=== PATIENT | male | born 1975 | race Caucasian/White ===

== ENCOUNTER 2016-12-18 08:12 | Emergency (ER) | payer SELFPAY ==
[2016-12-18 08:27] VITALS: BP 122/81
--- NOTE | 2016-12-18 11:21 | RAD ---
Indication: Right wrist pain 3 views of the wrist demonstrates no fracture. No other bone or joint abnormality is identified. IMPRESSION: NO FRACTURE OF THE WRIST IS NOTED.
--- NOTE | 2016-12-18 12:13 | UC ---
Ada Gentile Salem, scribed for Danyel Ross MD on 12/18/16 at 0936 . Upper Extremity HPI - HPI Summary HPI Summary: Patient is a 41 y/o M who presents to the with right wrist pain for the past two days. He states that while he was at work 2 days ago he jammed his wrist into his pick-up truck. He denies a popping sound, but reports pain with side to side movement. He also denies elbow or hand pain. Pt is right handed. Patients medication reviewed this visit. - History of Current Complaint Chief Complaint: UCUpperExtremity Stated Complaint: WRIST INJURY Hx Obtained From: Patient Onset/Duration: Gradual Onset, Lasting Days, Still Present Severity Initially: Moderate Severity Currently: Moderate Pain Intensity: 5 Pain Scale Used: 0-10 Numeric Location Of Pain: Is Discrete @ - Right wrist. Aggravating Factor(s): Movement Alleviating Factor(s): Rest Associated Signs And Symptoms: Positive: Negative - Allergies/Home Medications Allergies/Adverse Reactions: Allergies Allergy/AdvReac Type Severity Reaction Status Date / Time Penicillins Allergy Unknown Verified 12/18/16 08:20 Reaction Details Home Medications: Home Medications Etanercept [Enbrel] 12/18/16 [History] Hydrochlorothiazide TAB* [Hydrodiuril TAB*] 1 tab PO DAILY 12/18/16 [History Confirmed 12/18/16] PMH/Surg Hx/FS Hx/Imm Hx Previously Healthy: Yes - Surgical History Surgical History: Yes Surgery Procedure, Year, and Place: hernia as child x 2; r shoulder arthroscopy. vasectomy 2007. PARTIAL LARGE INTESTINE REMOVAL - Family History Family History: No malignant hyperthermia and no anesthesia reaction - Social History Alcohol Use: Rare Alcohol Amount: 1-2 month Substance Use Type: None Smoking Status (MU): Former Smoker Type: Cigarettes Amount Used/How Often: 1ppd Length of Time of Smoking/Using Tobacco: 10 yrs Have You Smoked in the Last Year: No When Did the Patient Quit Smoking/Using Tobacco: 11 yrs - Immunization History Most Recent Influenza Vaccination: 2016 Most Recent Tetanus Shot: 1999 Most Recent Pneumonia Vaccination: never Review of Systems Constitutional: Negative Musculoskeletal: Other: - Right wrist pain. No elbow or hand pain. All Other Systems Reviewed And Are Negative: Yes Physical Exam Triage Information Reviewed: Yes Vital Signs: Initial Vital Signs Temp 98.1 F 12/18/16 08:22 Pulse 65 12/18/16 08:22 Resp 16 12/18/16 08:22 BP 122/81 12/18/16 08:22 Pulse Ox 100 12/18/16 08:22 Vital Signs Reviewed: Yes - Additional Comments The patient is well-nourished in no acute distress and in no acute pain. The skin is warm and dry and skin color reflects adequate perfusion. HEENT: The head is normocephalic and atraumatic. The pupils are equal and reactive. The conjunctivae are clear and without drainage. Neck is supple with full range of motion and non-tender. Respiratory: Chest is non-tender. Lungs are clear to auscultation and breath sounds are symmetrical and equal. Cardiovascular: Hear is regular rate and rhythm. There is no murmur or rub auscultated. There is no peripheral edema and pulses are symmetrical and equal. Abdomen: The abdomen is soft and non-tender. Musculoskeletal: There is no back pain noted. Extremities are non-tender with full range of motion. There is good capillary refill. Pain with ulnar and radial deviation. No pain with extension or flexion. Radial median and ulnar nerves intact. Neurological: Patient is alert and oriented to person, place and time. The patient has symmetrical motor strength in all four extremities. Psychiatric: The patient has an appropriate affect and does not exhibit any anxiety or depression. Procedures - Splinting Location: Wrist and forearm, right. Pre-Made Type: velcro Splint: wrist - Right. Pre-Proc Neuro Vasc Exam: normal Post-Proc Neuro Vasc Exam: normal Diagnostics - Radiology WRIST RIGHT XR Radiology Interpretation Completed By: ED Physician - On preliminary reading, soft tissue swelling, but no fracture., Radiologist - IMPRESSION: negative. Re-Evaluation - Re-Evaluation First Eval Re-Evaluation Time: 10:12 Comment: Discussed imaging results. Splint wrist. Full ROM and good capillary refill after splint placement. Upper Extremity Course/Dx - Course Course Of Treatment: 41 y/o M presents with right wrist injury since 2 days ago. He denies a popping sound, but reports pain with side to side movement. He also denies elbow or hand pain. XR taken. Pt will be DCd with instructions. - Differential Dx/Diagnosis Differential Diagnosis/HQI/PQRI: Fracture (Closed), Sprain Provider Diagnoses: Sprained wrist. Discharge - Discharge Plan Condition: Stable Disposition: HOME Patient Education Materials: Wrist Sprain (ED) Referrals: Sakina Salazar MD [Primary Care Provider] - Additional Instructions: Please use ice and elevate wrist. Take Ibuprofen for pain. Please follow up with your primary care provider. The documentation as recorded by the Ada owen Salem accurately reflects the service I personally performed and the decisions made by , Danyel Ross MD.
== END 2016-12-18 10:28 | disposition home or self-care (01) ==
LOC: UCEAST 08:12
DX: S63.501A Unspecified sprain of right wrist, initial encounter (principal); W23.0XXA Caught, crushed, jammed, or pinched between moving objects, initial encounter; Y93.9 Activity, unspecified; Y92.89 Other specified places as the place of occurrence of the external cause; Y99.0 Civilian activity done for income or pay; Z88.0 Allergy status to penicillin; Z87.891 Personal history of nicotine dependence
CPT/HCPCS: 99211; G0463

== ENCOUNTER 2017-02-12 14:37 | Emergency (ER) | payer OTHER ==
[2017-02-12 15:34] LABS: Hematocrit 49 % (42-52); Hemoglobin 16.5 g/dl (14.0-18.0); Mean Corpuscular HGB Conc 34 g/dl (31-36); Mean Corpuscular Hemoglobin 31 pg (27-31); Mean Corpuscular Volume 92 fL (80-94); Mean Platelet Volume 8 um3 (7.4-10.4); Red Blood Count 5.37 10^6/ul (4.0-5.4); Red Cell Distribution Width 13 % (10.5-15); White Blood Count 9.5 10^3/ul (3.5-10.8)
[2017-02-12 15:48] LABS: Albumin 4.5 g/dL (3.2-5.2); BUN/Creatinine Ratio 10.7 (8-20); Calcium 9.5 mg/dL (8.6-10.3); EGFR Non-African American 66.1 (>60); Globulin 3.4 g/dL (2-4); Potassium 3.9 mmol/L (3.5-5.0); Total Bilirubin 1.1 mg/dL (0.2-1.0); Total Protein 7.9 g/dL (6.4-8.9)
[2017-02-12] MEDS ORDERED: NS 0.9% 1000 ML* 1,000 ML IV ONE (16:27)
[2017-02-12 16:48] LABS: C Reactive Protein 121.42 mg/L (< 5.00)
[2017-02-12] MEDS ORDERED: Iohexol 300* (CONTRAST) 10 ML SDV IV ONE (16:50)
--- NOTE | 2017-02-12 19:33 | RAD ---
CLINICAL HISTORY: Left lower quadrant pain. Relevant surgical history includes partial colectomy and vasectomy. COMPARISON: Most recent CT of the abdomen and pelvis dated March 28, 2014 TECHNIQUE: Contrast enhanced CT examination of the abdomen and pelvis from the lung bases through the initial tuberosities. The patient received 133 mL Omnipaque 300 intravenously prior to imaging.The patient received oral contrast as well prior to imaging. FINDINGS: VISUALIZED LUNG BASES: The visualized lung bases are grossly clear. There is no pleural effusion. ABDOMEN AND PELVIS: The liver, pancreas and adrenal glands are grossly normal in appearance. At the superior aspect of the spleen there is an ill-defined 6 mm low-density focus that may simply represent variation in enhancement. This portion of the spleen is cut off on the delayed views images to determine if it eventually fills in. The spleen is top normal in size measuring 12.8 cm in greatest dimension. There are at least 2 hyperattenuating stones in the gallbladder lumen. The gallbladder is otherwise normal in appearance according to CT criteria. The kidneys are normal in appearance without focal mass, calcification or signs of hydronephrosis. There are contrast has progressed as far as the rectum. The small and large bowel are not distended. The patient's normal appendix is identified in the right lower quadrant (coronal image 51). At the superior portion of the descending colon there is a segment of colon exhibiting wall thickening up to 1 cm in thickness with moderate pericolonic infiltration of the fat. There are diverticula in this region. More distally there are diverticula that do not exhibit inflammatory change. Surgical material seen at the junction of the descending colon and sigmoid colon.. There is no gross retroperitoneal or mesenteric lymphadenopathy. Surgical clips are noted at the inguinal canals. The abdominal aorta and iliac arteries are normal in course and diameter. Degenerative changes include multilevel loss of intervertebral disc height involving the lower thoracic and lumbar spine as well as stable bilateral pars interarticularis defect at L5/S1..There are no sinister bone lesions. IMPRESSION: 1. There is focal inflammatory change and wall thickening at the superior portion of the descending colon consistent with diverticulitis or colitis of another etiology. 2. Mild splenomegaly measuring up to 12.8 cm in greatest axial dimension. There is also a vaguely defined 6 mm focus of hypoattenuation of the spleen. This may simply represent variation in enhancement. Further characterization can be made on a nonemergent basis with splenic ultrasound. 3. Additional chronic, degenerative and iatrogenic findings described in the body the report.
[2017-02-12] MEDS ORDERED: Amoxicillin/Clavulanate TAB* 875 MG PO ONE ×2 (20:13→20:14)
--- NOTE | 2017-02-12 20:18 | ED ---
Benton Gentile Angela, scribed for Dragan Nuñez MD on 02/12/17 at 1630 . Abdominal Pain/Male - HPI Summary HPI Summary: 42 y/o male PMHx of diverticulitis presents to the ED sent by his PCP (Dr. Salazar) c/o left lower abdominal pain that began 2 days ago. Pt described his pain as nonradiating and rates it 3 out of 10 in severity now, but states that its worse it is a 7 out of 10. He notes that sitting down aggravates his pain. Pt has normal PO intake but has been avoiding to eat normally due to history of abd pain. Pt states that this pain is similar to a prior diverticulitis. Pt denies fever, chills, bloody stools, dysuria, hematuria, testicular pain, rash. He states that he had a large section of his colon removed years ago and has not had any problems since then. - History of Current Complaint Chief Complaint: EDAbdPain Stated Complaint: LOWER ABD PAIN Time Seen by Provider: 02/12/17 16:15 Hx Obtained From: Patient Onset/Duration: Gradual Onset Timing: Constant Pain Intensity: 4 - At its worst it is a 7 Pain Scale Used: 0-10 Numeric Location: Discrete At: LLQ Radiates: No Aggravating Factor(s): Other: - Sitting up. Alleviating Factor(s): Nothing Associated Signs And Symptoms: Negative: Fever, Blood in Stool, Nausea - Allergies/Home Medications Allergies/Adverse Reactions: Allergies Allergy/AdvReac Type Severity Reaction Status Date / Time Penicillins Allergy Unknown Verified 12/18/16 08:20 Reaction Details PMH/Surg Hx/FS Hx/Imm Hx Endocrine/Hematology History: Denies: Hx Diabetes, Hx Systemic Lupus Erythematosus Cardiovascular History: Reports: Hx Hypertension Denies: Hx Congestive Heart Failure GI History: Reports: Hx Diverticulosis, Other GI Disorders - DIVERTICULOSIS/SBO History: Denies: Hx Dialysis, Hx Renal Disease Musculoskeletal History: Reports: Hx Arthritis, Other Musculoskeletal History - psoriatic arthritis Denies: Hx Rheumatoid Arthritis Sensory History: Denies: Hx Contacts or Glasses, Hx Hearing Aid Opthamlomology History: Denies: Hx Contacts or Glasses - Cancer History Hx Chemotherapy: - for arthritis,low dose - Surgical History Surgery Procedure, Year, and Place: hernia as child x 2; r shoulder arthroscopy. vasectomy 2008. PARTIAL LARGE INTESTINE REMOVAL Hx Anesthesia Reactions: No Infectious Disease History: No Infectious Disease History: Denies: History Other Infectious Disease, Traveled Outside the [place] in Last 30 Days - Family History Known Family History: Positive: None Family History: No malignant hyperthermia and no anesthesia reaction - Social History Alcohol Use: Rare Alcohol Amount: 1-2 month Substance Use Type: Reports: None Hx Tobacco Use: Yes Smoking Status (MU): Former Smoker Type: Cigarettes Amount Used/How Often: 1ppd Length of Time of Smoking/Using Tobacco: 10 yrs Have You Smoked in the Last Year: No Review of Systems Negative: Fever, Chills Positive: Abdominal Pain Positive: other - NEGATIVE: Bloody stools. Negative: dysuria, hematuria Negative: Rash All Other Systems Reviewed And Are Negative: Yes Physical Exam - Summary Physical Exam Summary: General: well-appearing, no pain distress. No acute distress. Skin: warm, color reflects adequate perfusion, dry Head: normal Eyes: EOMI, MILADY ENT: normal Neck: supple, nontender Respiratory: CTA, breath sounds present Cardiovascular: RRR Abdomen: soft, mild tenderness on LLQ. Bowel: positive bowel sounds. Musculoskeletal: normal, strength/ROM intact Neurological: normal, sensory/motor intact, A&O x3 Psychological: affect/mood appropriate Triage Information Reviewed: Yes Vital Signs On Initial Exam: Initial Vitals Temp Pulse Resp BP Pulse Ox 97.8 F 94 17 135/88 100 02/12/17 14:50 02/12/17 14:50 02/12/17 14:50 02/12/17 14:50 02/12/17 14:50 Vital Signs Reviewed: Yes - [place] Coma Scale Coma Scale Total: 15 Diagnostics - Vital Signs Vital Signs Temp Pulse Resp BP Pulse Ox 02/12/17 16:06 98.8 F 85 18 133/88 97 02/12/17 14:50 97.8 F 94 17 135/88 100 - Laboratory Lab Results: Lab Results 02/12/17 02/12/17 Range/Units 15:21 15:21 WBC 9.5 (3.5-10.8) 10^3/ul RBC 5.37 (4.0-5.4) 10^6/ul Hgb 16.5 (14.0-18.0) g/dl Hct 49 (42-52) % MCV 92 (80-94) fL MCH 31 (27-31) pg MCHC 34 (31-36) g/dl RDW 13 (10.5-15) % Plt Count 197 (150-450) 10^3/ul MPV 8 (7.4-10.4) um3 Neut % (Auto) 66.2 (38-83) % Lymph % (Auto) 19.5 L (25-47) % [place] % (Auto) 11.8 H (1-9) % Eos % (Auto) 1.9 (0-6) % Baso % (Auto) 0.6 (0-2) % Absolute Neuts (auto) 6.3 (1.5-7.7) 10^3/ul Absolute Lymphs (auto) 1.9 (1.0-4.8) 10^3/ul Absolute Monos (auto) 1.1 H (0-0.8) 10^3/ul Absolute Eos (auto) 0.2 (0-0.6) 10^3/ul Absolute Basos (auto) 0.1 (0-0.2) 10^3/ul Absolute Nucleated RBC 0.01 10^3/ul Nucleated RBC % 0.1 Sodium 136 (133-145) mmol/L Potassium 3.9 (3.5-5.0) mmol/L Chloride 99 L (101-111) mmol/L Carbon Dioxide 30 (22-32) mmol/L Anion Gap 7 (2-11) mmol/L BUN 13 (6-24) mg/dL Creatinine 1.21 H (0.67-1.17) mg/dL Est GFR ( Amer) 85.0 (>60) Est GFR (Non-Af Amer) 66.1 (>60) BUN/Creatinine Ratio 10.7 (8-20) Glucose 88 (70-100) mg/dL Calcium 9.5 (8.6-10.3) mg/dL Total Bilirubin 1.10 H (0.2-1.0) mg/dL AST 12 L (13-39) U/L ALT 16 (7-52) U/L Alkaline Phosphatase 54 (34-104) U/L Total Protein 7.9 (6.4-8.9) g/dL Albumin 4.5 (3.2-5.2) g/dL Globulin 3.4 (2-4) g/dL Albumin/Globulin Ratio 1.3 (1-3) Result Diagrams: 02/12/17 15:21 02/12/17 15:21 Lab Statement: Any lab studies that have been ordered have been reviewed, and results considered in the medical decision making process. - CT CT Abd/Pelvis CT Interpretation: Positive (See Comments) - IMPRESSION: 1. There is focal inflammatory change and wall thickening at the superior portion of the descending colon consistent with diverticulitis or colitis of another etiology. 2. Mild splenomegaly measuring up to 12.8 cm in greatest axial dimension. There is also a vaguely defined 6 mm focus of hypoattenuation of the spleen. This may simply represent variation in enhancement. Further characterization can be made on a nonemergent basis with splenic ultrasound. 3. Additional chronic, degenerative and iatrogenic findings described in the body the report. CT Interpretation Completed By: Radiologist Abdominal Pain Fem Course/Dx - Course Course Of Treatment: WELL IN ED. DISCUSSED RESULTS WITH PATIENT. PATIENT REPORTS HE HAS HAD BAD SIDE EFFECTS FROM BEING ON CIPRO/FLAGYL AND THAT [employer] HAS WORKED IN THE PAST FOR HIM WITHOUT SIDE EFFECTS. HE REPORTS HE DOES NOT REMEMBER WHAT HIS PENICILLIN ALLERY WAS; HE WAS VERY YOUNG AND HE HAS TAKEN AMOXICILLIN AND AUGMENTIN WITHOUT PROBLEMS. - Diagnoses Provider Diagnoses: Diverticulitis, Abdominal pain Discharge - Discharge Plan Condition: Stable Disposition: HOME Prescriptions: Amoxicillin/Clavulanate TAB* [Augmentin TAB 875*] 875 mg PO BID #18 tab Referrals: Sakina Salazar MD [Primary Care Provider] - Additional Instructions: FOLLOW UP WITH YOUR DOCTOR. RETURN TO THE EMERGENCY DEPARTMENT FOR ANY WORSENING OF YOUR CONDITION; PAIN, FEVER, YOU FEEL ILL OR QUESTIONS OR CONCERNS. The documentation as recorded by the Benton owen Angela accurately reflects the service I personally performed and the decisions made by me, Dragan Nuñez MD.
[2017-02-12 20:51] VITALS: BP 118/73
== END 2017-02-12 20:51 | disposition home or self-care (01) ==
LOC: ED 14:37
DX: K57.92 Diverticulitis of intestine, part unspecified, without perforation or abscess without bleeding (principal); R10.32 Left lower quadrant pain; Z87.891 Personal history of nicotine dependence
CPT/HCPCS: 36415; 74177; 80053; 83690; 85025; 86140; 99283; A9270-GY; Q9967

== ENCOUNTER 2017-04-24 05:31 | Emergency (ER) | payer OTHER ==
[2017-04-24] MEDS ORDERED: NS 0.9% 1000 ML* 1,000 ML IV SCH (06:00)
[2017-04-24 06:31] LABS: Hematocrit 47 % (42-52); Hemoglobin 15.9 g/dl (14.0-18.0); Mean Corpuscular HGB Conc 34 g/dl (31-36); Mean Corpuscular Hemoglobin 30 pg (27-31); Mean Corpuscular Volume 88 fL (80-94); Mean Platelet Volume 8 um3 (7.4-10.4); Red Blood Count 5.26 10^6/ul (4.0-5.4); Red Cell Distribution Width 13 % (10.5-15); White Blood Count 8.7 10^3/ul (3.5-10.8)
[2017-04-24 06:37] LABS: Albumin 4.3 g/dL (3.2-5.2); BUN/Creatinine Ratio 17.1 (8-20); Calcium 9.6 mg/dL (8.6-10.3); EGFR African American 93.9 (>60); Globulin 3.1 g/dL (2-4); Potassium 3.7 mmol/L (3.5-5.0); Total Bilirubin 0.5 mg/dL (0.2-1.0); Total Protein 7.4 g/dL (6.4-8.9)
--- NOTE | 2017-04-24 06:56 | ED ---
Andrew Gentile Thomas, scribed for Norberto Muñoz on 04/24/17 at 0558 . Abdominal Pain/Male - HPI Summary HPI Summary: The pt is a 42 y/o M presenting to the ED c/o LLQ abd pain that began two days ago. The pain is intermittent. The pain is rated 6/10. The pain is aggravated by nothing and is alleviated by nothing. The patient has treated the pain with nothing LPN PER DIEM. He has a Hx of diverticulitis with partial colectomy. Pt denies N/V , fever, bloody stools, and leg pain. The patient is accompanied by a female. 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 [employer] - female present Onset/Duration: Lasting Days - onset of pain two days ago, Still Present Timing: Intermittent Severity Currently: Moderate Pain Intensity: 6 Pain Scale Used: 0-10 Numeric Location: Discrete At: LLQ Radiates: No Aggravating Factor(s): Nothing Alleviating Factor(s): Nothing Associated Signs And Symptoms: Negative: Fever, Blood in Stool, Nausea, Vomiting , Other - NEGATIVE: leg pain - Allergies/Home Medications Allergies/Adverse Reactions: Allergies Allergy/AdvReac Type Severity Reaction Status Date / Time Penicillins Allergy Unknown Verified 04/24/17 05:36 Reaction Details PMH/Surg Hx/FS Hx/Imm Hx Previously Healthy: No Endocrine/Hematology History: Denies: Hx Diabetes, Hx Systemic Lupus Erythematosus Cardiovascular History: Reports: Hx Hypertension Denies: Hx Congestive Heart Failure GI History: Reports: Hx Diverticulosis, Other GI Disorders - DIVERTICULOSIS/SBO History: Denies: Hx Dialysis, Hx Renal Disease Musculoskeletal History: Reports: Hx Arthritis, Other Musculoskeletal History - psoriatic arthritis Denies: Hx Rheumatoid Arthritis Sensory History: Denies: Hx Contacts or Glasses, Hx Hearing Aid Opthamlomology History: Denies: Hx Contacts or Glasses - Cancer History Hx Chemotherapy: - for arthritis,low dose - Surgical History Surgery Procedure, Year, and Place: hernia as child x 2; r shoulder arthroscopy. vasectomy 2007. PARTIAL LARGE INTESTINE REMOVAL Hx Anesthesia Reactions: No Infectious Disease History: No Infectious Disease History: Denies: History Other Infectious Disease, Traveled Outside the [place] in Last 30 Days - Family History Known Family History: Positive: Other - No malignant hyperthermia and no anesthesia reaction - Social History Alcohol Use: Rare Alcohol Amount: 1-2 month Substance Use Type: Reports: None Hx Tobacco Use: Yes Smoking Status (MU): Former Smoker Type: Cigarettes Amount Used/How Often: 1ppd Length of Time of Smoking/Using Tobacco: 10 yrs Have You Smoked in the Last Year: No Review of Systems Negative: Fever Positive: Abdominal Pain - LLQ, Other - NEGATIVE: bloody stools. Negative: Vomiting, Nausea Negative: Other - NEGATIVE: leg pain All Other Systems Reviewed And Are Negative: Yes Physical Exam - Summary Physical Exam Summary: Appearance: Well appearing, no pain distress. Skin: Warm, dry, reflects adequate perfusion. Head/face: Normal. Eyes: EOMI, MILADY. ENT: Normal. Neck: Supple, nontender. Respiratory: CTA, breath sounds present. Cardiovascular: RRR, pulses symmetrical. Abdomen: Soft. He is tender to the left lower quadrant. Bowel: Present. Musculoskeletal: Normal, strength/ROM intact. Neuro: Normal, sensory motor intact, A&Ox3. Triage Information Reviewed: Yes Vital Signs On Initial Exam: Initial Vitals Temp Pulse Resp BP Pulse Ox 97.9 F 79 14 146/89 99 04/24/17 05:35 04/24/17 05:35 04/24/17 05:35 04/24/17 05:35 04/24/17 05:35 Vital Signs Reviewed: Yes Diagnostics - Vital Signs Vital Signs Temp Pulse Resp BP Pulse Ox 04/24/17 05:35 97.9 F 79 14 146/89 99 - Laboratory Lab Results: Lab Results 04/24/17 04/24/17 04/24/17 Range/Units 06:00 06:00 06:00 WBC 8.7 (3.5-10.8) 10^3/ul RBC 5.26 (4.0-5.4) 10^6/ul Hgb 15.9 (14.0-18.0) g/dl Hct 47 (42-52) % MCV 88 (80-94) fL MCH 30 (27-31) pg MCHC 34 (31-36) g/dl RDW 13 (10.5-15) % Plt Count 192 (150-450) 10^3/ul MPV 8 (7.4-10.4) um3 Neut % (Auto) 68.8 (38-83) % Lymph % (Auto) 18.8 L (25-47) % [place] % (Auto) 9.4 H (1-9) % Eos % (Auto) 2.4 (0-6) % Baso % (Auto) 0.6 (0-2) % Absolute Neuts (auto) 6.0 (1.5-7.7) 10^3/ul Absolute Lymphs (auto) 1.6 (1.0-4.8) 10^3/ul Absolute Monos (auto) 0.8 (0-0.8) 10^3/ul Absolute Eos (auto) 0.2 (0-0.6) 10^3/ul Absolute Basos (auto) 0 (0-0.2) 10^3/ul Absolute Nucleated RBC 0 10^3/ul Nucleated RBC % 0 INR (Anticoag Therapy) 0.93 (0.89-1.11) APTT 32.0 (26.0-36.3) seconds Sodium 136 (133-145) mmol/L Potassium 3.7 (3.5-5.0) mmol/L Chloride 101 (101-111) mmol/L Carbon Dioxide 29 (22-32) mmol/L Anion Gap 6 (2-11) mmol/L BUN 19 (6-24) mg/dL Creatinine 1.11 (0.67-1.17) mg/dL Est GFR ( Amer) 93.9 (>60) Est GFR (Non-Af Amer) 73.0 (>60) BUN/Creatinine Ratio 17.1 (8-20) Glucose 96 (70-100) mg/dL Lactic Acid (0.5-2.0) mmol/L Calcium 9.6 (8.6-10.3) mg/dL Total Bilirubin 0.50 (0.2-1.0) mg/dL AST 15 (13-39) U/L ALT 16 (7-52) U/L Alkaline Phosphatase 57 (34-104) U/L Total Protein 7.4 (6.4-8.9) g/dL Albumin 4.3 (3.2-5.2) g/dL Globulin 3.1 (2-4) g/dL Albumin/Globulin Ratio 1.4 (1-3) Lipase 17 (11.0-82.0) U/L 04/24/17 Range/Units 06:00 WBC (3.5-10.8) 10^3/ul RBC (4.0-5.4) 10^6/ul Hgb (14.0-18.0) g/dl Hct (42-52) % MCV (80-94) fL MCH (27-31) pg MCHC (31-36) g/dl RDW (10.5-15) % Plt Count (150-450) 10^3/ul MPV (7.4-10.4) um3 Neut % (Auto) (38-83) % Lymph % (Auto) (25-47) % [place] % (Auto) (1-9) % Eos % (Auto) (0-6) % Baso % (Auto) (0-2) % Absolute Neuts (auto) (1.5-7.7) 10^3/ul Absolute Lymphs (auto) (1.0-4.8) 10^3/ul Absolute Monos (auto) (0-0.8) 10^3/ul Absolute Eos (auto) (0-0.6) 10^3/ul Absolute Basos (auto) (0-0.2) 10^3/ul Absolute Nucleated RBC 10^3/ul Nucleated RBC % INR (Anticoag Therapy) (0.89-1.11) APTT (26.0-36.3) seconds Sodium (133-145) mmol/L Potassium (3.5-5.0) mmol/L Chloride (101-111) mmol/L Carbon Dioxide (22-32) mmol/L Anion Gap (2-11) mmol/L BUN (6-24) mg/dL Creatinine (0.67-1.17) mg/dL Est GFR ( Amer) (>60) Est GFR (Non-Af Amer) (>60) BUN/Creatinine Ratio (8-20) Glucose (70-100) mg/dL Lactic Acid 0.5 (0.5-2.0) mmol/L Calcium (8.6-10.3) mg/dL Total Bilirubin (0.2-1.0) mg/dL AST (13-39) U/L ALT (7-52) U/L Alkaline Phosphatase (34-104) U/L Total Protein (6.4-8.9) g/dL Albumin (3.2-5.2) g/dL Globulin (2-4) g/dL Albumin/Globulin Ratio (1-3) Lipase (11.0-82.0) U/L Result Diagrams: 04/24/17 06:00 04/24/17 06:00 Lab Statement: Any lab studies that have been ordered have been reviewed, and results considered in the medical decision making process. - CT CT Abd/Pel CT Interpretation Completed By: Radiologist - Pending--See [facility] Abdominal Pain Fem Course/Dx - Course Assessment/Plan: Patient presents with LLQ pain that began today. Bloodwork was obtained. CT Abd/Pel pending at time of sign out to next ED physician. - Diagnoses Provider Diagnoses: Abdominal pain Discharge - Discharge Plan Condition: Fair Disposition: OTHER Discharge Disposition Comment: Sign out to next ED physician at time of shift change. Referrals: Sakina Salazar MD [Primary Care Provider] - The documentation as recorded by the Andrew owen Thomas accurately reflects the service I personally performed and the decisions made by Toni roldan Emmanuel.
[2017-04-24] MEDS ORDERED: Iohexol 300* (CONTRAST) 10 ML SDV IV ONE (07:13)
[2017-04-24] MEDS ORDERED: Ondansetron INJ* 2 MG/ML VIAL IV ONE (07:51)
[2017-04-24] MEDS ORDERED: Morphine INJ* 4 MG/ML 1 ML CARPUJECT IV ONE (07:51)
[2017-04-24 08:03] LABS: Urine Bacteria 1+ (Absent); Urine Bilirubin Negative (Negative); Urine Glucose Negative (Negative); Urine Nitrite Negative (Negative)
--- NOTE | 2017-04-24 09:10 | RAD ---
CLINICAL HISTORY: Left lower quadrant pain. Relevant surgical history includes "partial large intestine removal" COMPARISON: Most recent comparison CT is dated February 12, 2017 TECHNIQUE: Contrast enhanced CT examination of the abdomen and pelvis from the lung bases through the initial tuberosities. The patient received 135 mL Omnipaque 300 intravenously prior to imaging.The patient received oral contrast as well prior to imaging. FINDINGS: VISUALIZED LUNG BASES: The visualized lung bases are grossly clear. There is no pleural effusion. ABDOMEN AND PELVIS: Again seen at the spleen is a 6mm hypodense focus. The liver, pancreas and adrenal glands are grossly normal in appearance. There are at least 2 hyperattenuating gallstones in the otherwise normal-appearing gallbladder. The kidneys are normal in appearance without focal mass, calcification or signs of hydronephrosis. Contrast is excreted symmetrically bilaterally on the delayed phase imaging. Evaluation of the gastrointestinal tract is limited without oral contrast. The small and large bowel are not distended. The patient's normal appendix is identified in the right lower quadrant measuring up to 6mm in diameter. There is thickening of the descending colon measuring up to 9mm in thickness with surrounding pericolonic inflammatory stranding. There is anastomotic material at the rectosigmoid colon. There is no gross retroperitoneal or mesenteric lymphadenopathy. The pelvic viscera is normal in appearance. The abdominal aorta and iliac arteries are normal in course and diameter. Degenerative changes include multilevel loss of intervertebral disc height involving the lower thoracic and lumbar spine. There is stable pars interarticularis defects at L5/S1 without significant resultant spondylolisthesis. IMPRESSION: 1. CT findings are consistent with focal inflammatory change of the descending colon, likely diverticulitis. 2. Additional chronic, degenerative and iatrogenic findings described in body the report
[2017-04-24] MEDS ORDERED: metroNIDAZOLE TAB* 250 MG PO ONE (09:23)
[2017-04-24] MEDS ORDERED: Ciprofloxacin 400MG IVPREMIX(* 400 MG/200 ML BAG IVPB ONE (09:23)
[2017-04-24] MEDS ORDERED: Amoxicillin/Clavulanate TAB* 875 MG PO ONE (09:53)
[2017-04-24 10:02] VITALS: BP 114/72
--- NOTE | 2017-04-26 08:03 | ED ---
Benton Gentile Angela, scribed for Quincy Reeys MD on 04/24/17 at 0724 . Progress - Progress Note Progress Note: This pt is a 42 y/o male presenting to [facility] c/o LLQ abd pain that began 2 days ago. PMhx: diverticulitis with partial colectomy. Pt was signed out by Dr. Muñoz, pending disposition, awaiting CT abdomen/ pelvis. On physical exam: VITAL SIGNS: Reviewed. GENERAL: Patient is a well-developed and nourished male who is lying comfortable in the stretcher. Patient is not in any acute respiratory distress. HEAD AND FACE: Normocephalic and atraumatic. EYES: PERRLA, EOMI x 2, No injected conjunctiva. EARS: Hearing grossly intact. Ear canals and tympanic membranes are WNL. MOUTH: Oropharynx within normal limits. NECK: Supple, trachea is midline, no adenopathy, no JVD. CHEST: Symmetric, no tenderness at palpation LUNGS: Clear to auscultation bilaterally. No wheezing or crackles. CVS: RRR, S1 and S2 present, no murmurs or gallops appreciated. ABDOMEN: Soft. There is LLQ tenderness. No signs of distention. Positive bowel sounds. No rebound no guarding, and no masses palpated. No abdominal bruit or pulsations. EXTREMITIES: FROM in all major joints, no edema, no cyanosis or clubbing. NEURO: Alert and oriented x 3. No acute neurological deficits. Speech is normal. SKIN: Dry and warm The pt will be discharged to home in stable condition with a diagnosis of diverticulitis. - Results/Orders Results/Orders: CT abdomen/pelvis, per radiologist: IMPRESSION: 1. CT findings are consistent with focal inflammatory change of the descending colon, likely diverticulitis. 2. Additional chronic, degenerative and iatrogenic findings described in body the report. ED physician has reviewed this radiology report and agrees. Re-Evaluation - Re-Evaluation First Eval Re-Evaluation Time: 10:03 Comment: Pt is lying comfortably in the stretcher. Course/Dx - Course Course Of Treatment: This pt is a 42 y/o male presenting to [facility] c/o LLQ abd pain that began 2 days ago. PMhx: diverticulitis with partial colectomy. Pt was signed out by Dr. Muñoz, pending disposition, awaiting CT abdomen/pelvis. Test results without any significant abnormalities. CT abdomen/pelvis shows 1. CT findings are consistent with focal inflammatory change of the descending colon, likely diverticulitis. 2. Additional chronic, degenerative and iatrogenic findings described in body the report. The pt reports that even though he is allergic to penicillin, he is able to take Augmentin without allergy symptoms. The pt requested I give him Augmentin even though he is allergic to penicillin. However, he has taken Augmentin in the past for acute diverticulitis. The pt reports that he doesnt agree with Ciprofloxacin or Flagyl. Therefore, he was given Augmentin since he did not have any reaction in the past. Pt will be discharged to home in stable condition with follow up from his PCP. - Diagnoses Provider Diagnoses: Acute diverticulitis The documentation as recorded by the Benton owen Angela accurately reflects the service I personally performed and the decisions made by me, Quincy Reyse MD.
== END 2017-04-24 10:15 ==
LOC: ED 05:31
DX: K57.92 Diverticulitis of intestine, part unspecified, without perforation or abscess without bleeding (principal); R10.32 Left lower quadrant pain; Z87.891 Personal history of nicotine dependence
CPT/HCPCS: 36415; 74177; 80053; 81003; 81015; 83605; 83690; 85025; 85610; 85730; 87086; 96374; 96375; 99283; A9270-GY; J0744; J2270; J2405; Q9967